=== PATIENT | male | born 1990 ===

== ENCOUNTER 2024-12-12 07:10 | Day surgery (SDC) | payer OTHER ==
[2024-12-12] MEDS ORDERED: CEFAZOLIN SODIUM 1,000 MG VIAL ONE (11:31)
[2024-12-12] MEDS ORDERED: BUPIVACAINE HCL/MPF 0.5% 30ML VIAL ONE (11:58)
[2024-12-12] MEDS ORDERED: LIDOCAINE HCL 1%/EPINEPHRINE 20ML VIAL IJ ONE (11:58)
[2024-12-12] MEDS ORDERED: HEPARIN SODIUM,PORCINE/PF 100 UNIT/ML SYRINGE IV ONE (11:58)
[2024-12-12] MEDS ORDERED: TRAM1TAB98 PO (12:39)
== END 2024-12-12 15:35 | disposition home or self-care (01) ==
LOC: CIR.AMB 07:10
PROVIDERS: ATTEND Surgery
DX: C20 Malignant neoplasm of rectum (principal); Z88.0 Allergy status to penicillin; Z91.013 Allergy to seafood
CPT/HCPCS: 36561; C1751